=== PATIENT | male | born 1940 | race Caucasian/White ===

== ENCOUNTER → 2020-01-23 16:03 | Outpatient (ROUT) | payer MEDICARE, BC, SELFPAY ==
[2020-01-23 16:18] LABS: Aspartate Aminotransferase 31 IU/L (17-59); BUN Creatinine Ratio 28.2 (6-22); Blood Urea Nitrogen 33 mg/dL (9-20); Calcium 9.3 mg/dL (8.4-10.2); Carbon Dioxide 24 mmol/L (22-32); Chloride 104 mmol/L (98-107); Cholesterol 113 mg/dL (140-199); Estimated Glomerular Filt Rate > 60.0 mL/min (>60); Glucose 92 mg/dL (80-110); HDL Cholesterol 55 mg/dL (40-60); HEMOLYSIS < 15 (0-50); LDL Cholesterol Calculated 41 mg/dL (<100); Potassium 3.4 mmol/L (3.4-5.1); Sodium 138 mmol/L (137-145); Triglycerides 85 mg/dL (35-150)
== END ==
PROVIDERS: PCP Internal Medicine; Visit Provider Internal Medicine
DX: I10 Essential (primary) hypertension (principal); E78.2 Mixed hyperlipidemia
CPT/HCPCS: 80048; 80061; 84450

== ENCOUNTER → 2021-10-25 14:52 | Outpatient (CLI) | payer MEDICARE, BC, SELFPAY ==
[2021-10-25 16:07] LABS: Hematocrit 41.9 % (41-53); Hemoglobin 14.3 g/dL (13.5-17.5); Mean Corpuscular HGB Conc 34.1 % (30-36); Mean Corpuscular Hemoglobin 31.6 PG (26-34); Mean Corpuscular Volume 92.6 fL (80-100); Platelet Count 263 X10^3/uL (150-400); Red Blood Cell Count 4.52 X10^6/uL (4.5-5.9); Red Cell Distribution Width 13.7 % (11.6-14.8); White Blood Cell Count 7.4 X10^3/uL (4.5-11.0)
[2021-10-25 16:28] LABS: Alanine Aminotransferase 24 IU/L (<50); Albumin 4.4 g/dL (3.5-5.0); Albumin Globulin Ratio 1.3 (1.0-2.8); Alkaline Phosphatase 82 U/L (38-126); Aspartate Aminotransferase 34 IU/L (17-59); BUN Creatinine Ratio 28.2 (6-22); Bilirubin Total 0.6 mg/dL (0.2-1.3); Blood Urea Nitrogen 37 mg/dL (9-20); Calcium 9.2 mg/dL (8.4-10.2); Carbon Dioxide 28 mmol/L (22-32); Chloride 105 mmol/L (98-107); Cholesterol 130 mg/dL (140-199); Estimated Glomerular Filt Rate 55 mL/min (>60); Globulin 3.4 g/dL (1.7-4.1); Glucose 99 mg/dL (80-110); HDL Cholesterol 57 mg/dL (40-60); HEMOLYSIS < 15 (0-50); LDL Cholesterol Calculated 57 mg/dL (<100); Sodium 139 mmol/L (137-145); Total Protein 7.8 g/dL (6.3-8.2); Triglycerides 80 mg/dL (35-150)
[2021-10-25 17:15] LABS: TSH w/ Reflex to FT4 1.38 uIU/mL (0.47-4.68)
== END ==
PROVIDERS: PCP Internal Medicine; Referring Provider Internal Medicine; Visit Provider Internal Medicine
DX: E78.2 Mixed hyperlipidemia (principal); I10 Essential (primary) hypertension
CPT/HCPCS: 36415; 80053; 80061; 84443; 85027

== ENCOUNTER → 2022-06-30 15:23 | Outpatient (CLI) | payer MEDICARE, BC, SELFPAY ==
[2022-06-30 17:03] LABS: BUN Creatinine Ratio 25.9 (6-22); Blood Urea Nitrogen 30 mg/dL (9-20); Calcium 9.2 mg/dL (8.4-10.2); Carbon Dioxide 26 mmol/L (22-32); Chloride 104 mmol/L (98-107); Estimated Glomerular Filt Rate > 60 mL/min (>60); Glucose 103 mg/dL (80-110); HEMOLYSIS < 15 (0-50); Potassium 3.8 mmol/L (3.4-5.1); Sodium 140 mmol/L (137-145)
== END ==
PROVIDERS: PCP Internal Medicine; Referring Provider Internal Medicine; Visit Provider Internal Medicine
DX: I10 Essential (primary) hypertension (principal)
CPT/HCPCS: 36415; 80048

== ENCOUNTER → 2023-08-31 15:58 | Outpatient (CLI) | payer MEDICARE, BC, SELFPAY ==
[2023-08-31 17:45] LABS: Aspartate Aminotransferase 34 IU/L (17-59); BUN Creatinine Ratio 22.6 (6-22); Blood Urea Nitrogen 30 mg/dL (9-20); Calcium 9.5 mg/dL (8.4-10.2); Carbon Dioxide 22 mmol/L (22-32); Chloride 107 mmol/L (98-107); Cholesterol 113 mg/dL (140-199); Estimated Glomerular Filt Rate 54 mL/min (>60); Glucose 89 mg/dL (80-110); HDL Cholesterol 63 mg/dL (40-60); HEMOLYSIS < 15 (0-50); LDL Cholesterol Calculated 40 mg/dL (<100); Potassium 3.9 mmol/L (3.4-5.1); Sodium 138 mmol/L (137-145); Triglycerides 50 mg/dL (35-150)
== END ==
LOC: LAB 15:59
PROVIDERS: PCP Internal Medicine; Referring Provider Internal Medicine; Visit Provider Internal Medicine
DX: E78.2 Mixed hyperlipidemia (principal); I10 Essential (primary) hypertension
CPT/HCPCS: 36415; 80048; 80061; 84450

== ENCOUNTER → 2024-11-13 14:40 | Outpatient (CLI) | payer MEDICARE, BC, SELFPAY ==
[2024-11-13 16:30] LABS: Aspartate Aminotransferase 38 IU/L (17-59); BUN Creatinine Ratio 29.2 (6-22); Blood Urea Nitrogen 35 mg/dL (9-20); Calcium 9.3 mg/dL (8.4-10.2); Carbon Dioxide 19 mmol/L (22-32); Chloride 103 mmol/L (98-107); Cholesterol 125 mg/dL (140-199); Estimated Glomerular Filt Rate > 60 mL/min (>60); Glucose 85 mg/dL (70-99); HDL Cholesterol 58 mg/dL (40-60); LDL Cholesterol Calculated 55 mg/dL (<100); Potassium 3.9 mmol/L (3.4-5.1); Sodium 135 mmol/L (137-145); Triglycerides 58 mg/dL (35-150)
[2024-11-13 16:44] LABS: HEMOLYSIS 59 (0-50)
== END ==
PROVIDERS: PCP Internal Medicine; Referring Provider Internal Medicine; Visit Provider Internal Medicine
DX: E78.2 Mixed hyperlipidemia (principal); I10 Essential (primary) hypertension
CPT/HCPCS: 36415; 80048; 80061; 84450

== ENCOUNTER → 2024-11-21 10:23 | Outpatient (CLI) | payer MEDICARE, BC, SELFPAY ==
[2024-11-21 10:46] LABS: Hematocrit 41.9 % (41-53); Hemoglobin 14.2 g/dL (13.5-17.5); Mean Corpuscular HGB Conc 33.9 % (30-36); Mean Corpuscular Hemoglobin 32.1 PG (26-34); Mean Corpuscular Volume 94.6 fL (80-100); Platelet Count 257 X10^3/uL (150-400); Red Blood Cell Count 4.42 X10^6/uL (4.5-5.9); Red Cell Distribution Width 13.8 % (11.6-14.8); White Blood Cell Count 6.2 X10^3/uL (4.5-11.0)
[2024-11-21 12:08] LABS: TSH w/ Reflex to FT4 1.98 uIU/mL (0.47-4.68)
== END ==
PROVIDERS: PCP Internal Medicine; Referring Provider Internal Medicine; Visit Provider Internal Medicine
DX: I48.0 Paroxysmal atrial fibrillation (principal)
CPT/HCPCS: 36415; 84443; 85027

== ENCOUNTER → 2024-11-22 10:10 | Outpatient (CLI) | payer MEDICARE, BC, SELFPAY ==
--- NOTE | 2024-11-22 10:11 | DI.RAD.S_ITS ---
PROCEDURE: XR CHEST 2V INDICATIONS: afib TECHNIQUE: 2 views of the chest were acquired. COMPARISON: None. FINDINGS: Surgical changes and devices: None. Lungs and pleura: No acute consolidation. Small nodular opacity is seen at the lateral left upper lung zone. No pleural effusions or pneumothorax. Mediastinum: Mediastinal contours are normal. Heart size is normal. Bones and chest wall: No suspicious bony abnormalities. Soft tissues appear unremarkable. IMPRESSION: 1. No acute cardiopulmonary abnormality is seen. 2. Small nodular opacity at the left upper lung zone. Consider CT of the chest for further evaluation. Approved by: Andrés Boss M.D. on 11/22/2024 at 14:45
--- NOTE | 2024-11-22 10:39 | EKG_ITS ---
[place] [id number] [address] [place] [address] Test Date: 2024-11-22 Pat Name: Steve Paulino Department: Room: Gender: Male Student Support Counselor: : 1940 Requested By: Order Number: [id number] Reading MD: Satnam Bush Measurements Intervals [place] Rate: 82 P: 38 IL: 188 QRS: 28 QRSD: 94 T: 41 QT: 350 QTc: 408 Interpretive Statements Normal sinus rhythm Electronically Signed On 11-22-2024 16:19:12 PDT by Satnam Bush
== END ==
PROVIDERS: PCP Internal Medicine; Referring Provider Internal Medicine; Visit Provider Internal Medicine
DX: I48.0 Paroxysmal atrial fibrillation (principal); R91.1 Solitary pulmonary nodule
CPT/HCPCS: 71046; 93005

== ENCOUNTER → 2024-11-29 08:03 | Outpatient (CLI) | payer MEDICARE, BC, SELFPAY ==
--- NOTE | 2024-11-29 08:04 | DI.CT.S_ITS ---
PROCEDURE: CT CHEST WO CON INDICATIONS: BLESSING pulmonary nodule TECHNIQUE: Noncontrast 5 mm thick sections acquired from the pulmonary apices to the posterior costophrenic angles. 1 mm lung window, 5 mm thick coronal and sagittal and 7 mm axial MIP reformats were then acquired. For radiation dose reduction, the following was used: automated exposure control, adjustment of mA and/or kV according to patient size. COMPARISON: [facility], CR, XR CHEST 2V, 11/22/2024, 10:13. FINDINGS: Image quality: Diagnostic. Lungs and Pleura: Corresponding to the left lateral upper lobe opacity on chest x-ray, there is a tubular, branching opacity, possibly arising from a subsegmental pulmonary artery or an impacted peripheral airway. No ground-glass opacities or other suspicious nodules. Central and peripheral airways are normal without bronchial wall thickening or bronchiectasis. Narrow necked, small, fat containing right posteromedial diaphragmatic hernia. No pleural effusions or pleural calcifications. Lower Neck: No enlarged lymph nodes. Thyroid: Normal CT appearance. Axillae: No enlarged lymph nodes. Chest Wall: No suspicious chest wall lesions. Bones: No suspicious bone lesion. Mild degenerative changes in the spine. Thoracic Vessels: The aorta and pulmonary arteries demonstrate normal size. Mediastinum and Valeria: No enlarged lymph nodes. Heart: Heart size is normal. No pericardial effusion. Mild coronary calcification. Esophagus: No wall thickening. No hiatal hernia. Upper Abdomen: Visualized upper abdomen solid organs and bowel loops appear normal. IMPRESSION: Chest x-ray opacity corresponds to a dilated pulmonary vascular branch or impacted peripheral bronchus. Given small size, this is most likely benign. Otherwise normal chest CT. Dictated by: Dianne Batres M.D. on 11/29/2024 at 14:09 Approved by: Dianne Batres M.D. on 11/29/2024 at 14:19
== END ==
LOC: CT 08:04
PROVIDERS: PCP Internal Medicine; Referring Provider Internal Medicine; Visit Provider Internal Medicine
DX: R91.1 Solitary pulmonary nodule (principal); K44.9 Diaphragmatic hernia without obstruction or gangrene; I25.10 Atherosclerotic heart disease of native coronary artery without angina pectoris
CPT/HCPCS: 71250

== ENCOUNTER → 2024-12-03 07:51 | Outpatient (CLI) | payer MEDICARE, BC, SELFPAY ==
--- NOTE | 2024-12-03 08:07 | DI.ECHO.S_ITS ---
[facility]+ [facility] : : [address] : : [place] : : [id number] : : Phone: [phone] Echocardiogram Report + + :Name: EDWIN HEAD Study Date: 12/03/2024 Height: 67 in : :[facility] ReadingLocation: Weight: 190 lb : : Gender: Male BSA: 2.0 m2 : :: 1940 Age: 84 yrs BP: 110/80 mmHg: :Reason For Study: PAROXYSMAL ATRIAL FIBRILLATION : :Ordering Physician: DERRICK, : :BLAINE Performed By: Antonio Earl : :Referring: BLAINE MEZA : + + Interpretation Summary 1) Normal left ventricular thickness and size with mildly reduced systolic function (EF 45-50%). 2) Normal right ventricular size and function. 3) No significant valvular abnormalities. 4) Atrial fibrillation with ventricular rates in the 89-153bpm range present on this study. 5) No prior Echo available for comparison. Recommend cardiology consultation. Procedure: A two-dimensional transthoracic echocardiogram with color flow and Doppler was performed. The study quality was technically adequate. There is no prior echocardiogram noted for this patient. The patient was in atrial fibrillation with heart rates between 89-153 bpm during the exam. Left Ventricle: The left ventricle is normal in size and wall thickness. Proximal septal thickening is noted. There is no ventricular septal defect visualized. The ejection fraction is estimated to be 45-50%. There is mild global hypokinesis of the left ventricle. Diastolic function could not be accurately assessed due to atrial fibrillation. Right Ventricle: The right ventricle is normal in size and function. Atria: The left atrial size is normal. Right atrial size is normal. There is no Doppler evidence for an interatrial shunt. Mitral Valve: The mitral valve leaflets are mildly calcified. There is mild mitral annular calcification. There is no mitral regurgitation noted. Aortic Valve: The aortic valve is trileaflet. The aortic valve opens well. The aortic valve is slightly calcified. There is no aortic valve stenosis. No aortic regurgitation is present. Tricuspid Valve: The tricuspid valve leaflets are thin and pliable. There is trace tricuspid regurgitation. Pulmonic Valve: The pulmonic valve is not well seen, but is grossly normal. There is no pulmonic valvular regurgitation. Great Vessels: The aortic root is normal size. The dimensions of the ascending aorta are normal. The pulmonary artery is normal size. The IVC is of normal diameter and collapses greater than 50% with a sniff. This suggests a low right atrial pressure of 3 mm Hg. Pericardium/ Pleura There is no pericardial effusion. There is no pleural effusion. MMode/2D Measurements & Calculations LVIDd: 4.7 cm LVOT diam: 2.0 cm LVIDs: 3.0 cm Ao root diam: 3.6 cm FS: 35.4 % asc Aorta Diam: 3.5 cm EPSS: 0.61 cm IVSd: 1.2 cm LVPWd: 0.56 cm LV craft. diameter/BSA (cm/m^2): 2.4 LV sys. diameter/BSA (cm/m^2): 1.5 LA A2 area: 19.6 cm2 RA long axis: 5.1 cm LA A4 area: 18.6 cm2 RA area: 17.3 cm2 LA length (vol): 5.8 cm RA vol: 50.4 ml LA vol: 53.5 ml RA : 25.5 ml/m2 LA vol index: 27.0 ml/m2 IVC diam: 1.6 cm RVD1 (basal): 3.7 cm RVD2 (mid): 2.6 cm TAPSE: 2.1 cm Doppler Measurements & Calculations Ao V2 max: 154.7 cm/sec LVOT Max Pawan: 104.9 cm/sec Ao V2 mean: 118.1 cm/sec LV V1 max P.4 mmHg Ao max P.6 mmHg LV V1 VTI: 18.3 cm Ao mean P.1 mmHg JEANNETTE(I,D): 2.0 cm2 Ao V2 VTI: 27.4 cm JEANNETTE(V,D): 2.1 cm2 sev ratio: 0.67 JEANNETTE indexed to BSA (cm^2/m^2): 1.0 MV E max pawan: 77.5 cm/sec TR max pawan: 299.3 cm/sec Med Peak E' Pawan: 4.0 cm/sec TR max P.8 mmHg E/E' med: 19.4 PA V2 max: 116.3 cm/sec Lat Peak E' Pawan: 9.1 cm/sec PA V2 mean: 67.7 cm/sec E/E' lat: 8.5 PA mean P.2 mmHg E/e' average: 14.0 PA pr(Accel): 53.3 mmHg MV dec time: 0.09 sec SV(LVOT): 55.8 ml Reading Physician:12:46 PM
== END ==
LOC: ECHO 07:53
PROVIDERS: PCP Internal Medicine; Referring Provider Internal Medicine; Visit Provider Internal Medicine
DX: I34.81 Nonrheumatic mitral (valve) annulus calcification (principal); I48.0 Paroxysmal atrial fibrillation
CPT/HCPCS: 93306

== ENCOUNTER → 2024-12-04 10:10 | Outpatient (CLI) | payer MEDICARE, BC, SELFPAY | LOC: CAR 10:10 | PROVIDERS: PCP Internal Medicine; Referring Provider Internal Medicine; Visit Provider Internal Medicine | DX: I48.91 Unspecified atrial fibrillation (principal); I48.92 Unspecified atrial flutter | CPT/HCPCS: 93246 ==